=== PATIENT | male | born 1960 ===

== ENCOUNTER 2017-06-21 14:45 | Emergency (ER) | payer BC, MEDICAID ==
[2017-06-21 15:00] VITALS: BMI 27.2
[2017-06-21 15:05] VITALS: BP 204/102; PULSE 65; RESP 18; TEMP 97.7; O2SAT 97
--- NOTE | 2017-06-21 15:29 | C.PDOC ---
History Of Present Illness 57 year old male presents to the ED with complaints of penile erythema and intermittent testicular swelling and pain for one year. Patient states he visited a doctor when the symptoms began and was told "it was nothing." He reports currently no testicular swelling or pain. Patient denies dysuria, hematuria, back pain, abdominal pain, penile discharge, sexual activity, or concern for sexually transmitted infections. Time Seen by Provider: 06/21/17 15:19 Chief Complaint (Nursing): Male Genitourinary History Per: Patient History/Exam Limitations: no limitations Onset/Duration Of Symptoms: Intermittent Episodes (1 year ) Current Symptoms Are (Timing): Better Quality Of Discomfort: "Pain" Associated Symptoms: denies: Fever, Chills, Nausea, Vomiting, Back Pain, Urinary Symptoms Alleviating Factors: None Recent travel outside of the [place]: No Past Medical History Reviewed: Historical Data, Nursing Documentation, Vital Signs Vital Signs: Last Vital Signs Temp 97.7 F 06/21/17 15:00 Pulse 65 06/21/17 15:00 Resp 18 06/21/17 15:00 BP 204/102 H 06/21/17 15:00 Pulse Ox 97 06/21/17 16:00 - Medical History PMH: HTN Family History: States: Unknown Family Hx - Social History Hx Alcohol Use: No Hx Substance Use: No - Immunization History Hx Tetanus Toxoid Vaccination: No Hx Influenza Vaccination: No Hx Pneumococcal Vaccination: No Review Of Systems Constitutional: Negative for: Fever, Chills Cardiovascular: Negative for: Chest Pain Respiratory: Negative for: Shortness of Breath Gastrointestinal: Negative for: Nausea, Vomiting, Abdominal Pain, Diarrhea Genitourinary: Positive for: Scrotal Pain (and swelling ). Negative for: Dysuria, Hematuria, Penile Discharge Musculoskeletal: Negative for: Back Pain Physical Exam - Physical Exam Additional Physical Exam Comments: Constitutional: No acute distress. Head: Normocephalic. Atraumatic. Eyes: PERRL. ENT: Moist mucous membranes. Neck: Supple. Cardiovascular: Regular rate. Radial pulses 2+ bilaterally. Chest: No tenderness. Respiratory: Clear to auscultation bilaterally. GI: Soft. Nontender. Nondistended. Male : Circumcised penis. Erythema and glossing of urethral meatus. No testicular swelling. No scrotal swelling. Back: No CVA tenderness. Musculoskeletal: No tenderness or swelling of extremities. Skin: No rash. Neurologic: Alert, no focal deficit. ED Course And Treatment O2 Sat by Pulse Oximetry: 97 (RA) Disposition - Disposition Referrals: Mark Blackwell MD [Staff Provider] - Disposition: HOME/ ROUTINE Disposition Time: 15:27 Condition: STABLE Prescriptions: Clotrimazole 1% Cream [Lotrimin 1%] 30 applic TOP BID #1 tube Instructions: Balswapniltis (ED) Forms: [facility] ([place]), Gen Discharge Inst [place] - Clinical Impression Clinical Impression: Balanitis - Scribe Statement The provider has reviewed the documentation as recorded by the Scribe Sussy Champion All medical record entries made by the Scribe were at my direction and personally dictated by me. I have reviewed the chart and agree that the record accurately reflects my personal performance of the history, physical exam, medical decision making, and the department course for this patient. I have also personally directed, reviewed, and agree with the discharge instructions and disposition.
== END 2017-06-21 15:55 | disposition home or self-care (01) ==
LOC: C.ER 14:45
DX: N48.1 Balanitis (principal)